=== PATIENT | female | born 1990 | race Caucasian/White ===

== ENCOUNTER → 2017-07-19 | Outpatient (CLI) | payer OTHER ==
[~2017-07-19] MED LIST: PRENTAB26 PO
[2017-07-19 16:40] LABS: BASO % 0.2 %; BASO ABS # 0.02 K/uL (0-0.2); COMPLETE YES; EOS % 0.5 %; HEMATOCRIT 32.7 % (37-47); IG% 0.4 %; LYMPH % 24.8 %; LYMPH ABS # 2.01 K/uL (1.2-3.4); MEAN CELL VOLUME 87.7 fL (80-100); MEAN CORPUSCULAR HEMOGLOBIN 30.3 pg (25-34); MEAN CORPUSCULAR HGB CONC 34.6 g/dl (32-36); MONO % 8.2 %; NEUT % 65.9 %; PLATELET COUNT 237 K/uL (130-400); RED BLOOD COUNT 3.73 M/uL (4.2-5.4); WHITE BLOOD COUNT 8.09 K/uL (4.8-10.8)
[2017-07-19 18:37] LABS: URINE APPEARANCE CLEAR (CLEAR); URINE BILIRUBIN NEG (NEG); URINE COLOR YELLOW; URINE NITRITE NEG (NEG); URINE PH 5.5 (4.5-7.5); URINE SPECIFIC GRAVITY 1.025 (1.000-1.030); UROBILINOGEN NEG (NEG)
[2017-07-19 18:38] LABS: MANUAL MICROSCOPIC REQUIRED? NO; REVIEW REQ? NO
[2017-07-22 14:03] LABS: CHLAMYDIA TRACH RNA*** NOT DETECTED (NOT DETECTED); GC (NEIS GONORRHOEAE)RNA** NOT DETECTED (NOT DETECTED)
== END | disposition home or self-care (01) ==
LOC: C.LAB1850 15:10
PROVIDERS: ATTEND Obstetrics & Gynecology
DX: Z34.91 Encounter for supervision of normal pregnancy, unspecified, first trimester (principal)

== ENCOUNTER → 2017-09-16 | Outpatient (CLI) | payer OTHER ==
[2017-09-16 13:03] LABS: GTGD 50 Grams
== END | disposition home or self-care (01) ==
LOC: C.LAB1850 10:44
PROVIDERS: ATTEND Obstetrics & Gynecology
DX: Z34.82 Encounter for supervision of other normal pregnancy, second trimester (principal)

== ENCOUNTER → 2017-12-05 | Outpatient (CLI) | payer OTHER | END | disposition home or self-care (01) | LOC: C.LABSPEC 14:08 | PROVIDERS: ATTEND Obstetrics & Gynecology | DX: Z34.83 Encounter for supervision of other normal pregnancy, third trimester (principal) ==

== ENCOUNTER → 2017-12-16 | Outpatient (CLI) | payer OTHER | END | disposition home or self-care (01) | LOC: C.LAB1850 10:39 | PROVIDERS: ATTEND Obstetrics & Gynecology | DX: Z34.83 Encounter for supervision of other normal pregnancy, third trimester (principal) ==

== ENCOUNTER → 2018-01-01 | Outpatient (CLI) | payer OTHER ==
[2018-01-01 14:36] LABS: HEMATOCRIT 31.8 % (37-47)
== END | disposition home or self-care (01) ==
LOC: C.LAB1850 12:59
PROVIDERS: ATTEND Obstetrics & Gynecology
DX: Z34.83 Encounter for supervision of other normal pregnancy, third trimester (principal)

== ENCOUNTER → 2018-01-29 | Outpatient (CLI) | payer OTHER | END | disposition home or self-care (01) | LOC: C.LABSPEC 15:49 | PROVIDERS: ATTEND Obstetrics & Gynecology | DX: Z29.13 Encounter for prophylactic Rho(D) immune globulin (principal); Z41.8 Encounter for other procedures for purposes other than remedying health state ==

== ENCOUNTER 2018-02-15 16:38 | Inpatient (IN) | payer OTHER ==
[~2018-02-15] VITALS: Ht 154.9 cm; Wt 62.6 kg
[2018-02-15] MEDS ORDERED: LACTATED RINGER'S 1000ML 1,000 ML IV SCH (16:47)
[2018-02-15] MEDS ORDERED: LACTATED RINGER'S 1000ML 1,000 ML IV PRN (16:47)
[2018-02-15 17:13] LABS: HEMATOCRIT 32.3 % (37-47); HEMOGLOBIN 10.9 g/dL (12.0-16.0); MEAN CELL VOLUME 88.7 fL (80-100); MEAN CORPUSCULAR HEMOGLOBIN 29.9 pg (25-34); MEAN CORPUSCULAR HGB CONC 33.7 g/dl (32-36); PLATELET COUNT 220 K/uL (130-400); RED CELL DISTRIBUTION WIDTH CV 13.1 % (11.5-14.5); RED CELL DISTRIBUTION WIDTH SD 42.1 fL (36.4-46.3); WHITE BLOOD COUNT 12.65 K/uL (4.8-10.8)
[2018-02-15] MEDS ORDERED: OXYTOCIN 30 UNITS/500ML NSS IV ONE (17:38)
[2018-02-15] MEDS ORDERED: OXYCODONE/ACETAMINOPHEN 5-325 TAB PO PRN (18:15)
[2018-02-15] MEDS ORDERED: SUPERCREAM 0.870 % 15GM JAR EXT PRN (18:15)
[2018-02-15] MEDS ORDERED: LANOLIN OINT EXT PRN (18:15)
[2018-02-15] MEDS ORDERED: ACETAMINOPHEN 325 MG TAB PO PRN (18:15)
[2018-02-15] MEDS ORDERED: HYDROCORTISONE ACETATE 25 MG SUPP PR PRN (18:15)
[2018-02-15] MEDS ORDERED: BENZOCAINE 20% AER SPR 82.5 GM CAN EXT PRN (18:15)
[2018-02-15] MEDS ORDERED: OXYTOCIN 30 UNITS/500ML NSS IV PRN (18:15)
[2018-02-15 19:04] VITALS: Ht 154.9 cm; Wt 62.6 kg
--- NOTE | 2018-02-15 20:04 | DELIVERY SUMMARY ---
DATE OF OPERATION: 02/15/2018 PREDELIVERY DIAGNOSES: 1. A 27-year-old G3, P2-0-0-2 at 38 weeks and 3 days. 2. Spontaneous labor. 3. RH-negative, refuses RhoGAM. POSTDELIVERY DIAGNOSES: 1. A 27-year-old G3, P2, 0-0-2 at 38 weeks and 3 days. 2. Spontaneous labor. 3. RH-negative, refuses RhoGAM. PROCEDURES: Spontaneous vaginal delivery and repair of first-degree perineal laceration. FINDINGS: Viable female with Apgars 8 and 9, weight pending. Please see nursery record. First-degree perineal laceration. ESTIMATED BLOOD LOSS: 300 mL. COMPLICATIONS: None. DESCRIPTION OF DELIVERY: The patient progressed to complete without anesthesia. She then began to push. She spontaneously vaginally delivered a viable female from the cephalic presentation. The head delivered in the right occiput anterior position. No nuchal cord was noted. The anterior shoulder delivered followed by the posterior shoulder followed by the body. The baby was placed on the mother's abdomen. Cord was doubly clamped and cut. A cord segment was retained for gases. Baby was handed off to the waiting pediatrics team and a spontaneous cry was heard. The uterus and vagina were swept off all clots and debris. The uterus began to clamp down with uterine massage. Pitocin was given. Cervix, vagina and perineum were inspected and a first-degree peroneal laceration was noted. Lidocaine was injected for anesthetic. The first-degree peroneal laceration was repaired in a standard fashion with 3-0 Vicryl. Excellent hemostasis was noted. The patient tolerated the delivery well. Patient and baby recovered in stable and good condition in the room. Sponge, instrument and needle counts were correct at the conclusion of the delivery. I attest to the content of the Intraoperative Record and any orders documented therein. Any exception s are noted below.
[2018-02-15 20:30] VITALS: BP 104/64; PULSE 69; TEMP 37; O2SAT 98
[2018-02-15] MEDS: IBUPROFEN 600 MG TAB PO PRN (21:37)
[2018-02-15] MEDS: DOCUSATE SODIUM 100 MG CAP PO SCH (21:38)
[2018-02-15 23:20] VITALS: BP 120/78; PULSE 63; TEMP 37.4; O2SAT 98
[2018-02-16 03:30] VITALS: BP 100/64; PULSE 77; TEMP 37; O2SAT 98
[2018-02-16 06:54] LABS: HEMATOCRIT 27.8 % (37-47); HEMOGLOBIN 9.6 g/dL (12.0-16.0)
--- NOTE | 2018-02-16 06:57 | Progress Note ---
Subjective Feb 16, 2018. Subjective conversation w/ patient, physical exam Ambulation: ambulating normally Voiding: no voiding problems Passing Gas: Yes Diet Tolerance: Regular Diet Lochia: Moderate Feeding Type: Breast Feeding Pain: controlled Review of Systems Constitutional: No problem reported Respiratory: No problem reported Cardiac: No problem reported Breast: No problem reported Abdomen: No problem reported Female : No problem reported Objective Vital Signs Date Time Temp Pulse Resp B/P (MAP) Pulse Ox O2 Delivery O2 Flow Rate FiO2 02/16/18 03:30 37.0 77 16 100/64 (76) 98 Room Air 02/15/18 23:20 98 Room Air 02/15/18 23:20 37.4 63 18 120/78 (92) 98 Room Air 02/15/18 20:30 37.0 69 18 104/64 (77) 98 Room Air 02/15/18 20:30 98 Room Air Physical Exam General Appearance: WELL-APPEARING, NO APPARENT DISTRESS Respiratory/Chest: no respiratory distress Cardiovascular: regular rate, rhythm Abdomen: non tender, soft Fundus: Firm Extremities: normal inspection Laboratory Results Last 24 Hours Test 02/15/18 16:58 02/16/18 06:27 White Blood Count 12.65 K/uL Red Blood Count 3.64 M/uL Hemoglobin 10.9 g/dL Hematocrit 32.3 % Mean Corpuscular Volume 88.7 fL Mean Corpuscular Hemoglobin 29.9 pg Mean Corpuscular Hemoglobin Concent 33.7 g/dl RDW Standard Deviation 42.1 fL RDW Coefficient of Variation 13.1 % Platelet Count 220 K/uL Mean Platelet Volume 11.0 fL Assessment and Plan Post- Day#: 1 Continue Routine Care: PPD#1 doing well. Would like to go home later today. DC instructions reviewed. RTO 6w PP. Rh negative status, has refused rhogam as her is also Rh negative.
--- NOTE | 2018-02-16 06:58 | Discharge Instructions ---
Discharge Instructions Date of Service Feb 16, 2018. Admission Reason for Admission: Check Labor Discharge Discharge Diagnosis / Problem: vaginal delivery Discharge Goals Goal(s): Routine recovery after delivery Activity Recommendations Activity Limitations: per Instructions/Follow-up section . Instructions / Follow-Up Instructions / Follow-Up ACTIVITY RECOMMENDATIONS: * Gradual return to full activity over the next 2-3 weeks. * No lifting - nothing heavier than baby over the next 2-3 weeks. * Do not engage in vigorous exercise, sexual activity or sports until cleared by your physician. * Do not drive or operate any motorized equipment until cleared by your physician. * You may shower/bathe daily. MEDICATIONS: For discomfort or pain, you may use Acetaminophen (Tylenol), Ibuprofen (Advil), or Naproxen (Aleve) following the package directions. For constipation you may use Colace following the package directions. BREAST CARE: If you are not breast feeding: * Wear a supportive bra 24 hours a day for one to two weeks. * Avoid stimulating your breasts and nipples as much as possible during the first few weeks after delivery. * When taking a shower, have the warm water hit your back, not breasts. * When your breasts feel full, apply ice packs. Usually three to four times a day helps ease the discomfort. * Take a mild pain medication (Tylenol / Motrin) when you are uncomfortable. If breast feeding: * Use breast milk to lubricate nipples. Lansinoh cream may be used for sore nipples. You do not need to remove cream prior to breast feeding. If using a different brand of cream, check the label for directions regarding removal of cream prior to nursing. * Wear a supportive bra. * If having problems with breasts or breast feeding, call a cruise consultant or your health care provider. EPISIOTOMY CARE: After delivery, if you have an episiotomy (stitches), the following steps will ease discomfort and aid healing. * For the first 24 hours after delivery, place ice packs next to your episiotomy to help reduce swelling. * After the first 24 hour-period, sitz baths, either portable or in the tub, are suggested. A shower with a shower arm sprayed over the episiotomy may be comforting. * Padmini care should be done after each voiding and bowel movement. Squirt warm water from a plastic bottle over the perineum (region of the body between the anus and urinary opening) and pat dry. * Use Dermoplast to ease discomfort. Shake container. Oden directly over the episiotomy. Place a Tucks on a clean sanitary pad next to your episiotomy. SPECIAL CARE INSTRUCTIONS: When you are discharged from the hospital, it is important for you to follow the instructions listed below: * During the first week at home, you should be able to care for yourself and your baby. In addition, the usual light household activities are encouraged. * Limit your activities to the way you feel. Do not try to clean the house or move furniture. Be sensible. * If you actively engage in sports and have done so up until the time of your delivery, you may resume these activities as soon as you feel able. This may take up to one month or even longer. Use good judgment. * Continue to take your vitamins for at least six weeks after the of your baby. * Your diet need not be limited unless you were on a special diet before your delivery. Breast-feeding mothers need around 2500 calories per day and at least 64-80 ounces of fluid per day (8 to 10 glasses). * You should eat foods from the four major food groups. Crash diets or fad diets are to be avoided. Eating lean meats, fresh fruits and vegetables, low-fat dairy products, high fiber foods and a regular exercise program, will help you get back to your pre- weight without putting your health at risk. * Constipation is sometimes a problem after delivery. Take a mild laxative as needed. If breast feeding, Milk of Magnesia is acceptable to use. You may use a suppository or Fleets enema if no episiotomy. * A daily shower or tub bath is suggested. Be sure to thoroughly and gently dry the perineum. * A bloody vaginal discharge will usually continue until around four weeks post . A small amount of bleeding may continue for as long as six weeks. Vaginal discharge changes from the bright red bleeding after delivery to pink then brownish and finally yellowish-pink before becoming white and disappearing. * Bleeding may increase with activity. Your first period may come in 4-8 weeks. If you are breast feeding, your period may be delayed even longer. * Mcgraw (sex) can begin whenever both you and your partner feel comfortable and do not have any form of genital infection. It is recommended that you wait at least six weeks for internal and external healing to occur. If you have questions, please talk to your health care practitioner. A condom should be used to prevent infection and . * Foreplay, gentle intercourse and lubrication is very important the first several times to prevent pain. A water-based lubricant such as K-Y jelly or Astroglide may be used. * If you have RH negative blood and your baby is RH positive, you will receive RHOGAM by injection prior to discharge. The nurse will give you a card to keep with you that has the date and place that you received RHOGAM after delivery. * During your care, you had a Rubella screen done to check for the presence of rubella antibodies in your blood. If your test was negative, you will receive a Rubella vaccine prior to discharge. This vaccine may cause a fever, soreness at the injection site and flu-like symptoms. If these symptoms persist, notify your health care practitioner. is not advised for one month after a Rubella vaccine. * Verbalizes understanding of car seat law as reviewed with patient nursing. * Car Seat hand-out given and reviewed with patient by nursing. * Shaken baby information reviewed with patient by nursing. Call you doctor if: * Heavy bleeding (saturating several pads an hour) or passing clots the size of your fist. * A fever >101 degrees F (38.3 degrees C) on two occasions four hours apart and /or chills. * Unusual pain in the pelvic or vaginal areas. * "Baby Blues" lasting longer than two weeks. If you have any questions or concerns, call your health care practitioner at . FOLLOW UP VISIT: * Please call the office at to schedule a 6 week examination. It is important you keep this appointment. It is important for you to make arrangements for either yearly or twice yearly check-ups thereafter. Current Hospital Diet Patient's current hospital diet: Regular OB Diet Discharge Diet Recommended Diet: Regular OB Diet Pending Studies Studies pending at discharge: no Medical Emergencies . Who to Call and When: Medical Emergencies: If at any time you feel your situation is an emergency, please call 911 immediately. . Non-Emergent Contact Non-Emergency issues call your: Primary Care Provider, Receiving Supervisor . . "Provider Documentation" section prepared by Brandi Mcpherson. .
[2018-02-16] MEDS: DOCUSATE SODIUM 100 MG CAP PO SCH (07:35)
[2018-02-16 07:45] VITALS: BP 99/61; PULSE 57; TEMP 36.4
[2018-02-16 12:30] VITALS: BP 102/63; PULSE 71; TEMP 36.8
[2018-02-16] MEDS: IBUPROFEN 600 MG TAB PO PRN (12:34)
[2018-02-16 15:50] VITALS: BP 119/82; PULSE 84; TEMP 37.1
[2018-02-16 18:00] VITALS: BP_DIAS 82; PULSE 84; TEMP 37.1
[2018-02-16] MEDS ORDERED: BISACODYL 5 MG TABEC PO SCH (20:00)
== END 2018-02-16 19:10 | disposition home or self-care (01) | DRG 775 ==
LOC: C.OPB 16:38 → C.LD 16:38 → C.OPB 16:50 → C.OBG 20:26
PROVIDERS: ADMIT Obstetrics & Gynecology; ATTEND Obstetrics & Gynecology
PROC: 10E0XZZ Delivery of Products of Conception, External Approach (ICD-10-PCS; principal; 2018-02-15)
PROC: 0HQ9XZZ Repair Perineum Skin, External Approach (ICD-10-PCS; principal; 2018-02-15)
DX: O36.0930 Maternal care for other rhesus isoimmunization, third trimester, not applicable or unspecified (principal); O70.0 First degree perineal laceration during delivery; Z3A.38 38 weeks gestation of pregnancy; Z37.0 Single live birth; Z91.19 Patient's noncompliance with other medical treatment and regimen